=== PATIENT | male | born 1980 | race Caucasian/White ===

== ENCOUNTER 2018-04-28 02:47 | Emergency (ER) | payer SELFPAY ==
--- NOTE | 2018-04-28 03:43 | ERD ---
ER Documentation Chief Complaint Chief Complaint multiple abscesses, hx of IVDU HPI This is a 37-year-old male with past medical history of IV drug use who presents to the ED with complaints of multiple abscesses over his body for the past 3-4 days. Patient states he has a history of same, secondary to his IV heroin use. He states he last used 24 hours ago. Patient states he has been picking at his abscesses with his fingers and using razor blades to pop them open. He states the abscess on his left hip has been actively draining since this morning. Denies any fevers, chills, numbness, tingling, focal weakness of his extremi ties. Denies any nausea, vomiting. No other complaints. ROS All systems reviewed and are negative except as per history of present illness. Medications Home Meds Active Scripts Clindamycin Hcl* (Clindamycin Hcl*) 300 Mg Capsule, 300 MG PO QID for 7 Days, CAP Prov:DISHIGRIKIAN,MOUNIKAPYUR N PA-C 04/28/18 Sulfamethoxazole/Trimethoprim* (Bactrim Ds* Tablet) 1 Each Tablet, 1 TAB PO BID for 7 Days, #14 TAB Prov:SULYIGRIKIANMOOK N PA-C 04/28/18 Allergies Allergies: Coded Allergies: Unknown: Unable to obtain (Unverified , 04/28/18) Physical Exam Vitals Vital Signs Date Temp Pulse Resp B/P (MAP) Pulse Ox O2 O2 Flow FiO2 Time Delivery Rate 04/28/18 98.5 110 20 140/63 96 Room Air 05:39 (88) Physical Exam Const: No acute distress Head: Atraumatic Eyes: Normal Conjunctiva ENT: Normal External Ears, Nose and Mouth. Neck: Full range of motion. No meningismus. Resp: Clear to auscultation bilaterally Cardio: Regular rate and rhythm, no murmurs Abd: Soft, non tender, non distended. Normal bowel sounds Skin: + Multiple abscesses noted to his left knuckle, left hip, left knee. Left hip abscess openly draining with surrounding erythema, mild tenderness to palpation. No fluctuance. No induration. Neur: Awake and alert Psych: Normal Mood and Affect Result Diagram: 04/28/18 0350 Results 24 hrs Laboratory Tests Test 04/28/18 03:50 04/28/18 04:46 White Blood Count 13.4 10^3/ul Red Blood Count 3.63 10^6/ul Hemoglobin 10.6 g/dl Hematocrit 32.2 % Mean Corpuscular Volume 88.7 fl Mean Corpuscular Hemoglobin 29.2 pg Mean Corpuscular Hemoglobin Concent 32.9 g/dl Red Cell Distribution Width 13.0 % Platelet Count 238 10^3/UL Mean Platelet Volume 9.8 fl Immature Granulocytes % 0.400 % Neutrophils % 82.8 % Lymphocytes % 9.9 % Monocytes % 5.8 % Eosinophils % 0.7 % Basophils % 0.4 % Nucleated Red Blood Cells % 0.0 /100WBC Immature Granulocytes # 0.060 10^3/ul Neutrophils # 11.1 10^3/ul Lymphocytes # 1.3 10^3/ul Monocytes # 0.8 10^3/ul Eosinophils # 0.1 10^3/ul Basophils # 0.1 10^3/ul Nucleated Red Blood Cells # 0.0 10^3/ul Lactate Dehydrogenase 868 IU/L Lactic Acid Level 1.6 mmol/L Current Medications Medications Dose Sig/Junie Start Time Status Last (Trade) Ordered Route PRN Stop Time Admin Dose Reason Admin 650 mg ONCE ONCE 04/28/18 DC 04/28/18 Acetaminophen PO 04:00 04/28/18 04:00 (Tylenol 04:01 Tab) Clindamycin 600 mg ONCE ONCE 04/28/18 Cancel Phosphate IM 05:30 04/28/18 (Cleocin) 05:31 Clindamycin 600 mg ONCE ONCE 04/28/18 DC 04/28/18 Phosphate IM 05:30 04/28/18 05:47 (Cleocin) 05:31 Procedures/MDM EMERGENT LABS AND DIAGNOSTIC STUDIES: Lab Results above were reviewed and interpreted by me as below. CBC: WBC of 13K, likely a stress reaction. H/H of 10.6, 32.2 Lactic Acid: < 2 Otherwise within normal limits, unremarkable or as documented above. EMERGENCY DEPARTMENT COURSE / MEDICAL DECISION MAKING: This is a 37 year old M with hx of IVDU who presents with multiple abscesses, mostly along the left side of his body. He is nontoxic appearing on physical ex am. He does have one abscess on his left hip that is actively drainage, remaining abscesses are smaller and nonfluctuant. He is afebrile here with stable vital signs. CBC showed a mildly elevated WBC of 13K, likely a stress reaction from his cellulitis. Lactic acid was normal, therefore low suspicion for sepsis or SIRS. H/H was low however pt is hemodynamically stable and not complaining of any active bleeding, dizziness or headache. No need for transfusion at this time. He was given a copy of these results and told to follow up with his PCP. I have high clinical suspicion for MRSA as pt is an IVDU. He was given dose of Clindamycin here and discharged home with a prescription for Bactrim and Clindamycin as well. Case was discussed with my supervising physician, Dr. Mckeon who agrees with this care plan. I have low clinical suspicious for deep space abscess, septic arthritis, necrotizing fasciitis, tenosynovitis or osteomyelitis. He remained in stable condition during his stay in the ED. A list of clinics was provided for follow up 2 days, otherwise return to the ED for any new or worsening symptoms. Prior to discharge, patients vital signs have been reviewed PRESCRIPTIONS: Clindamycin, Bactrim SPECIALIST FOLLOW UP RECOMMENDED: None Patient has been advised to follow up with primary care in 1-2 days. Departure Diagnosis: Primary Impression: Cellulitis Site of cellulitis: unspecified site Qualified Codes: L03.90 - Cellulitis, unspecified Additional Impressions: Abscess IVDU (intravenous drug user) Anemia Condition: Stable Patient Instructions: Abscess, Antiobiotic Treatment Only, Understanding Heroin Abuse and Addiction Referrals: [facility] MOOK CASTRO PA-C Apr 28, 2018 03:43
[2018-04-28] MEDS ORDERED: ACETAMINOPHEN 325 MG TAB PO ONE (04:00)
[2018-04-28] MEDS ORDERED: CLIN300C10 PO (05:23)
[2018-04-28] MEDS ORDERED: SULF1TAB31 PO (05:23)
[2018-04-28] MEDS ORDERED: CLINDAMYCIN 300 MG INJ IM ONE (05:30)
[2018-04-28] MEDS ORDERED: CLINDAMYCIN 600 MG INJ IM ONE (05:30)
[2018-04-28 05:39] VITALS: BP 140/63; PULSE 110; RESP 20
== END 2018-04-28 05:57 | disposition home or self-care (01) ==
LOC: FTE 02:47
DX: L03.90 Cellulitis, unspecified (principal); F11.90 Opioid use, unspecified, uncomplicated; D64.9 Anemia, unspecified
CPT/HCPCS: 36415; 83605; 83615; 85025; 96372